=== PATIENT | male | born 1985 | race African-American/Black ===

== ENCOUNTER 2022-10-13 20:34 | Emergency (ER) | payer MEDICAID ==
[~2022-10-13] VITALS: Ht 175.3 cm; Wt 102.0 kg
[2022-10-13 20:58] VITALS: BP 124/85; O2SAT 98
[2022-10-14] MEDS ORDERED: CEPH500C2 MT (03:30)
[2022-10-14] MEDS ORDERED: NAPR-1176 MT (03:30)
[2022-10-14] MEDS ORDERED: P20 MT (03:30)
[2022-10-14 03:56] VITALS: PULSE 18; RESP 16; TEMP 98.4
== END 2022-10-14 03:57 | disposition home or self-care (01) ==
LOC: ER 20:34
DX: R21 Rash and other nonspecific skin eruption (principal); Z88.6 Allergy status to analgesic agent
CPT/HCPCS: 99281; 99283